=== PATIENT | female | born 1965 | race Caucasian/White ===

== ENCOUNTER 2023-03-21 17:23 | Emergency (ER) | payer SELFPAY ==
[~2023-03-21] VITALS: Ht 162.6 cm; Wt 91.0 kg
[2023-03-21 17:25] VITALS: BP 165/95; PULSE 118; RESP 18; TEMP 98.1; O2SAT 97
[2023-03-21] MEDS ORDERED: ACETAMINOPHEN 325MG TABLET PO ONE (19:15)
[2023-03-21] MEDS ORDERED: IBUP-2029 MT (20:05)
== END 2023-03-21 20:26 | disposition home or self-care (01) ==
LOC: ER 17:23
DX: S09.90XA Unspecified injury of head, initial encounter (principal); S20.212A Contusion of left front wall of thorax, initial encounter; M54.2 Cervicalgia; V49.49XA Driver injured in collision with other motor vehicles in traffic accident, initial encounter; Y93.89 Activity, other specified; Y92.89 Other specified places as the place of occurrence of the external cause; Y99.8 Other external cause status
CPT/HCPCS: 70460; 71045; 99284